=== PATIENT | male | born 2000 | race African-American/Black ===

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

== ENCOUNTER 2021-02-17 11:28 | Emergency (ER) | payer OTHER, SELFPAY | END 2021-02-17 13:00 | disposition home or self-care (01) | LOC: MADERS 11:28 | DX: S90.31XA Contusion of right foot, initial encounter (principal); I10 Essential (primary) hypertension; W22.8XXA Striking against or struck by other objects, initial encounter; Y92.69 Other specified industrial and construction area as the place of occurrence of the external cause ==

== ENCOUNTER 2021-08-22 15:21 | Emergency (ER) | payer SELFPAY ==
[2021-08-22] MEDS ORDERED: Amoxicillin/Potassium Clav 875 MG TAB ONE (15:47)
== END 2021-08-22 16:09 | disposition home or self-care (01) ==
LOC: MADERS 15:21
DX: J01.90 Acute sinusitis, unspecified (principal); B96.89 Other specified bacterial agents as the cause of diseases classified elsewhere; I10 Essential (primary) hypertension
CPT/HCPCS: 99283

== ENCOUNTER 2021-11-03 16:05 | Emergency (ER) | payer SELFPAY | END 2021-11-03 17:00 | disposition home or self-care (01) | LOC: MADERS 16:05 | DX: B34.9 Viral infection, unspecified (principal); I10 Essential (primary) hypertension | CPT/HCPCS: 99283 ==

== ENCOUNTER 2022-01-19 03:16 | Emergency (ER) | payer SELFPAY ==
[2022-01-19] MEDS ORDERED: Ondansetron ODT 4 MG TAB ONE (03:32)
[2022-01-19] MEDS ORDERED: Dicyclomine 10 MG CAP ONE ×2 (03:32→03:43)
== END 2022-01-19 03:53 | disposition home or self-care (01) ==
LOC: MADERS 03:16
DX: R19.7 Diarrhea, unspecified (principal); I10 Essential (primary) hypertension; R10.9 Unspecified abdominal pain; R10.84 Generalized abdominal pain
CPT/HCPCS: 99283; Q0162

== ENCOUNTER 2022-04-01 22:36 | Emergency (ER) | payer SELFPAY | END 2022-04-02 00:13 | disposition home or self-care (01) | LOC: MADERS 22:36 | DX: U07.1 COVID-19 (principal); I10 Essential (primary) hypertension; F17.210 Nicotine dependence, cigarettes, uncomplicated | CPT/HCPCS: 87804; J7620; U0003; U0005 ==

== ENCOUNTER 2022-06-28 05:54 | Emergency (ER) | payer SELFPAY ==
[2022-06-28] MEDS ORDERED: Ibuprofen 600 MG TAB ONE (06:22)
== END 2022-06-28 07:50 | disposition home or self-care (01) ==
LOC: MADERS 05:54
DX: J02.9 Acute pharyngitis, unspecified (principal); R51.9 Headache, unspecified; I10 Essential (primary) hypertension; F17.210 Nicotine dependence, cigarettes, uncomplicated
CPT/HCPCS: 87081; 87430; 87804; 99284

== ENCOUNTER 2022-09-19 08:32 | Emergency (ER) | payer SELFPAY | END 2022-09-19 09:34 | disposition home or self-care (01) | LOC: MADERS 08:32 | DX: J06.9 Acute upper respiratory infection, unspecified (principal); I10 Essential (primary) hypertension; F17.220 Nicotine dependence, chewing tobacco, uncomplicated; F17.290 Nicotine dependence, other tobacco product, uncomplicated; Z20.822 Contact with and (suspected) exposure to COVID-19 | CPT/HCPCS: 87081; 87430; 87804; U0003; U0005 ==

== ENCOUNTER 2024-03-05 17:05 | Emergency (ER) | payer SELFPAY | END 2024-03-05 17:58 | disposition home or self-care (01) | LOC: MADERS 17:05 | DX: S63.502A Unspecified sprain of left wrist, initial encounter (principal); R93.89 Abnormal findings on diagnostic imaging of other specified body structures; F17.220 Nicotine dependence, chewing tobacco, uncomplicated; F17.290 Nicotine dependence, other tobacco product, uncomplicated; I10 Essential (primary) hypertension; V89.2XXA Person injured in unspecified motor-vehicle accident, traffic, initial encounter | CPT/HCPCS: 99283 ==